=== PATIENT | female | born 1965 | race Caucasian/White ===

== ENCOUNTER → 2023-11-20 14:52 | Outpatient (REF) | payer BC, SELFPAY | LOC: RAD 14:52 | PROVIDERS: ATTENDING PHYSICIAN Family Medicine | DX: M25.551 Pain in right hip (principal); M25.552 Pain in left hip | CPT/HCPCS: 73522 ==

== ENCOUNTER → 2025-04-05 19:48 | Outpatient (REF) | payer BC, SELFPAY | LOC: WDC 19:48 | PROVIDERS: ATTENDING PHYSICIAN Family Medicine | DX: Z12.31 Encounter for screening mammogram for malignant neoplasm of breast (principal) | CPT/HCPCS: 77063; 77067 ==

== ENCOUNTER 2025-04-14 06:25 | Day surgery (SDC) | payer BC, SELFPAY | END 2025-04-14 14:47 | disposition home or self-care (01) | LOC: GI 06:25 | PROVIDERS: ATTENDING PHYSICIAN Internal Medicine Gastroenterology | DX: Z12.11 Encounter for screening for malignant neoplasm of colon (principal); K52.9 Noninfective gastroenteritis and colitis, unspecified; K57.30 Diverticulosis of large intestine without perforation or abscess without bleeding; K64.9 Unspecified hemorrhoids; K62.1 Rectal polyp | CPT/HCPCS: 45380; 88305 ==